=== PATIENT | male | born 1940 | race Caucasian/White ===

== ENCOUNTER → 2016-09-05 | Outpatient (CLI) | payer MEDICARE, BC ==
--- NOTE | 2016-09-05 09:10 | CT ---
EXAMINATION TYPE: CT brain wo con DATE OF EXAM: 09/05/2016 8:59 AM HISTORY: recent syncope CT DLP: 1135 mGycm. Automated Exposure Control for Dose Reduction was Utilized. TECHNIQUE: CT scan of the head is performed without contrast. COMPARISON: None. FINDINGS: There is no acute intracranial hemorrhage or midline shift identified. There is diffuse v entricular and sulcal prominence consistent with diffuse age-related cerebral atrophy. Atrophy most p rominent over frontal and temporal lobes. There is area of old infarct right frontal lobe near axial image 19. The globes are intact and the visualized sinuses are clear. There is vascular calcificat ion of distal internal carotid arteries present bilaterally. IMPRESSION: No acute intracranial hemorrhage or midline shift. 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
== END | disposition home or self-care (01) ==
LOC: RADCTMAIN 08:25
PROVIDERS: ATTEND Psychiatry & Neurology Neurology
DX: G31.9 Degenerative disease of nervous system, unspecified (principal); Z86.69 Personal history of other diseases of the nervous system and sense organs
CPT/HCPCS: 70450

== ENCOUNTER 2016-09-22 00:58 | Emergency (ER) | payer MEDICARE, BC ==
[2016-09-22 01:09] VITALS: RESP 16; TEMP 98
[2016-09-22] MEDS ORDERED: SODIUM CHLORIDE 0.9% 1,000 ML IV STA ×2 (01:24→02:57)
[2016-09-22] MEDS ORDERED: LIDOCAINE/EPINEPHR/TETRACAINE 5 ML BOTTLE TOPICAL ONE (01:24)
[2016-09-22] MEDS ORDERED: RX INFO: IV CONTRAST WAS GIVEN 1 EACH MISC MISCELLANE PRN ×2 (01:24→01:49)
--- NOTE | 2016-09-22 01:27 | ED ---
Fall HPI - General Chief Complaint: Fall Stated Complaint: Fall-Head Lac Time Seen by Provider: 09/22/16 01:12 Source: patient, RN notes reviewed Mode of arrival: EMS - History of Present Illness Initial Comments: 75-year-old male presents to the emergency Department chief complaint fall. Patient states he went to reach for the door and he fell. Patient states he hit his head and is having some left-sided abdominal pain. Patient states he has no hip pain and no arm pain. Patient does not believe he lost consciousness. Patient denies any neck pain. Patient states that he does take Plavix. Patient denies any chest pain or any lightheadedness or dizziness before the fall. Patient denies any significant pain besides some minor pain in his abdomen worse to touch. Patient denies any recent fever, chills, shortness of breath, chest pain, back pain, nausea vomiting, numbness or tingling, dysuria or hematuria, constipation or diarrhea, headaches or visual changes, or any other current symptoms. - Related Data Home Medications Medication Instructions Recorded Confirmed Acetaminophen [Tylenol] 650 mg PO Q4H 09/22/16 09/22/16 Aspirin EC [Ecotrin Low Dose] 81 mg PO HS 09/22/16 09/22/16 Atorvastatin Calcium [Lipitor] 40 mg PO HS 09/22/16 09/22/16 Bisacodyl 10 mg RECTAL PRN 09/22/16 Carbidopa-Levodopa 25-100 mg 1 each PO BID 09/22/16 09/22/16 [Sinemet 25-100] Clopidogrel Bisulfate [Plavix] 75 mg PO DAILY 09/22/16 09/22/16 Hydrochlorothiazide 12.5 mg PO BID 09/22/16 09/22/16 Ibuprofen 3 tab PO TID PRN 09/22/16 09/22/16 Insulin Detemir [Levemir] 12 unit SQ DAILY 09/22/16 09/22/16 Insulin Lispro [humaLOG Kwikpen] 8 unit SQ ACHS 09/22/16 09/22/16 Lisinopril 20 mg PO HS 09/22/16 09/22/16 Menthol [Biofreeze] 1 applicate TOPICAL BID 09/22/16 09/22/16 Metoprolol Tartrate 50 mg PO Q12HR 09/22/16 09/22/16 Pantoprazole [Protonix] 40 mg PO DAILY 09/22/16 09/22/16 Potassium Chloride [Klor-Con 8 meq PO DAILY 09/22/16 09/22/16 Sprinkle] metFORMIN HCL [Metformin HCl] 1,000 mg PO BID 09/22/16 09/22/16 Allergies Allergy/AdvReac Type Severity Reaction Status Date / Time No Known Allergies Allergy Verified 09/22/16 02:08 Review of Systems ROS Statement: Those systems with pertinent positive or pertinent negative responses have been documented in the HPI. ROS Other: All systems not noted in ROS Statement are negative. Past Medical History Past Alcohol Use History: None Reported Past Drug Use History: None Reported General Exam Limitations: no limitations General appearance: alert, in no apparent distress Head exam: Present: other (he does appear to have a 5 cm laceration to the forehead with associated hematoma) Eye exam: Present: normal appearance, PERRL, EOMI, other (Patient does appear to have ecchymosis surrounding the right eye). Absent: scleral icterus, conjunctival injection, periorbital swelling ENT exam: Present: normal exam, mucous membranes moist Neck exam: Present: normal inspection. Absent: tenderness, meningismus, lymphadenopathy Respiratory exam: Present: normal lung sounds bilaterally. Absent: respiratory distress, wheezes, rales, rhonchi, stridor Cardiovascular Exam: Present: regular rate, normal rhythm, normal heart sounds. Absent: systolic murmur, diastolic murmur, rubs, gallop, clicks GI/Abdominal exam: Present: soft, tenderness (Left lower quadrant), normal bowel sounds. Absent: distended, guarding, rebound, rigid Extremities exam: Present: normal inspection (Healing skin tears), full ROM, normal capillary refill. Absent: tenderness, pedal edema, joint swelling, calf tenderness Back exam: Present: normal inspection, full ROM, other (Area). Absent: tenderness, CVA tenderness (R), CVA tenderness (L) Neurological exam: Present: alert, oriented X3 Psychiatric exam: Present: normal affect, normal mood Skin exam: Present: warm, dry, intact, normal color. Absent: rash Course Vital Signs 09/22/16 09/22/16 01:05 02:20 Temperature 98 F Pulse Rate 79 85 Respiratory 16 16 Rate Blood Pressure 132/68 132/68 O2 Sat by Pulse 98 95 Oximetry Procedures - Procedures Initial comment: The skin was anesthetized with 1% lidocaine. The laceration was then cleansed with Betadine and irrigated with normal saline. The wound was inspected, and there was no evidence of injury to deep structures. No foreign body was noted in the wound. A total of 7 skin sutures were placed utilizing 6-0 nylon to a 5 cm forehead laceration. Medical Decision Making - Medical Decision Making 75-year-old male presents emergency per chief complaint of fall. At this time CAT scan is showing a small subarachnoid hemorrhage. We will transfer to [facility] for continued care. Patient CT abdomen and pelvis is showing suspicion for L1 compression fracture as well. At this time patient has no point tenderness over the area however they were also informed of this finding and we will transfer the patient for care of this to [facility] as well. - Lab Data Result diagrams: 09/22/16 01:45 09/22/16 01:45 Lab Results 09/22/16 09/22/16 09/22/16 Range/Units 01:45 01:45 01:45 WBC 16.8 H (3.8-10.6) k/uL RBC 3.58 L (4.30-5.90) m/uL Hgb 11.4 L (13.0-17.5) gm/dL Hct 35.2 L (39.0-53.0) % MCV 98.3 (80.0-100.0) fL MCH 31.9 (25.0-35.0) pg MCHC 32.4 (31.0-37.0) g/dL RDW 13.6 (11.5-15.5) % Plt Count 319 (150-450) k/uL Neutrophils % 82 % Lymphocytes % 12 % Monocytes % 4 % Eosinophils % 1 % Basophils % 0 % Neutrophils # 13.8 H (1.3-7.7) k/uL Lymphocytes # 2.0 (1.0-4.8) k/uL Monocytes # 0.6 (0-1.0) k/uL Eosinophils # 0.2 (0-0.7) k/uL Basophils # 0.1 (0-0.2) k/uL PT 9.8 (9.0-12.0) sec INR 1.0 (<1.1) APTT 20.3 L (22.0-30.0) sec Sodium 140 (137-145) mmol/L Potassium 5.3 H (3.5-5.1) mmol/L Chloride 107 (98-107) mmol/L Carbon Dioxide 21 L (22-30) mmol/L Anion Gap 12 mmol/L BUN 41 H (9-20) mg/dL Creatinine 1.40 H (0.66-1.25) mg/dL Est GFR (MDRD) Af Amer >60 (>60 ml/min/1.73 sqM) Est GFR (MDRD) Non-Af 50 (>60 ml/min/1.73 sqM) Glucose 146 H (74-99) mg/dL Calcium 9.1 (8.4-10.2) mg/dL Total Bilirubin 0.5 (0.2-1.3) mg/dL AST 20 (17-59) U/L ALT 23 (21-72) U/L Alkaline Phosphatase 97 (38-126) U/L Total Protein 6.2 L (6.3-8.2) g/dL Albumin 3.6 (3.5-5.0) g/dL - Radiology Data Radiology results: report reviewed, image reviewed Disposition Clinical Impression: Fall, Hematoma of frontal scalp, Forehead laceration, Subarachnoid hemorrhage following injury, Compression fracture of L1 lumbar vertebra, Hematoma of left flank, Hyperkalemia, Acute kidney injury Disposition: OTHER INSTITUTION NOT DEFINED Condition: Stable Referrals: Leobardo Cuba MD [Primary Care Provider] - 1-2 days - Out of Hospital Transfer - Req. Specs Out of Hospital Transfer - Requested Specifics: Other Emergency Center ([facility])
[2016-09-22 02:23] LABS: Basophils # (A) 0.1 k/uL (0-0.2); Basophils % (A) 0 %; CH 32.8; CHCM 33.5; Eosinophils # (A) 0.2 k/uL (0-0.7); Eosinophils % (A) 1 %; HCT 35.2 % (39.0-53.0); HDW 2.41; HGB 11.4 gm/dL (13.0-17.5); Luc % (Auto) 1; Lymphocytes % (A) 12 %; MCH 31.9 pg (25.0-35.0); MCHC 32.4 g/dL (31.0-37.0); MCV 98.3 fL (80.0-100.0); Mean Platelet Volume 7.3; Monocytes # (A) 0.6 k/uL (0-1.0); Monocytes % (A) 4 %; Neutrophils # (A) 13.8 k/uL (1.3-7.7); Neutrophils % (A) 82 %; RBC 3.58 m/uL (4.30-5.90); RDW 13.6 % (11.5-15.5); WBC 16.8 k/uL (3.8-10.6); WBC (Perox) 16.75
[2016-09-22 02:31] LABS: Anion Gap 12 mmol/L; Calcium 9.1 mg/dL (8.4-10.2); Carbon Dioxide 21 mmol/L (22-30); Chloride 107 mmol/L (98-107); Glucose 146 mg/dL (74-99); Non-African American GFR(MDRD) 50 (>60 ml/min/1.73 sqM); Sodium 140 mmol/L (137-145); Total Bilirubin 0.5 mg/dL (0.2-1.3); Total Protein 6.2 g/dL (6.3-8.2)
[2016-09-22 02:35] LABS: Prothrombin Time 9.8 sec (9.0-12.0)
[2016-09-22 02:39] LABS: ALT 23 U/L (21-72); AST 20 U/L (17-59); Alkaline Phosphatase 97 U/L (38-126); Blood Urea Nitrogen 41 mg/dL (9-20); Potassium 5.3 mmol/L (3.5-5.1)
--- NOTE | 2016-09-22 02:44 | CT ---
EXAM: CT Head Without Intravenous Contrast. CLINICAL HISTORY: Reason: Pain TECHNIQUE: Axial computed tomography images of the head/brain without intravenous contrast. CTDI is 60.3 mGy and DLP is 1126 mGy-cm. This CT exam was performed using one or more of the following dose reduction techniques: automated exposure control, adjustment of the mA and/or kV according to patient size, and/or use of iterative reconstruction technique. COMPARISON: 09/05/16 FINDINGS: Brain: There is a small amount of acute subarachnoid hemorrhage within sulci of the posterior-superior left frontal lobe (series 3, images 32- 37). No mass effect. Small chronic right frontal lobe infarct again noted as well as right basal ganglia lacunar infarct. Generally stable involutional and microvascular ischemic changes Bones: Forehead contusion. No acute fracture. Bilateral calvarial tiki hole defects again noted Sinuses: Interval development of sphenoid sinusitis. Mastoid air cells: Unremarkable as visualized. No mastoid effusion. IMPRESSION: Small amount of acute subarachnoid hemorrhage within sulci of the left frontal lobe. No mass effect. EXAM: CT Cervical Spine Without Intravenous Contrast. CLINICAL HISTORY: Reason: Pain TECHNIQUE: Axial computed tomography images of the cervical spine without intravenous contrast. CTDI is 20 mGy and DLP is 480 mGy-cm. This CT exam was performed using one or more of the following dose reduction techniques: automated exposure control, adjustment of the mA and/or kV according to patient size, and/or use of iterative reconstruction technique. COMPARISON: No relevant prior studies available. FINDINGS: Vertebrae: No acute fracture. Discs/spinal canal/neural foramina: Multilevel spondylosis including disc space and facet and uncovertebral joint degeneration. Findings are most pronounced at C5-6 and C6-7. Soft tissues: Right greater than left carotid atherosclerosis. Pacer wires. Lung apices: Unremarkable as visualized. IMPRESSION: No fracture Critical Value Communications 09/22/16 03:03 Call Doctor Regarding Intracranial Hemorrhage, called Dr. Reyes on 09/22 03:02 (-04:00)
[2016-09-22 02:51] LABS: Partial Thromboplastin Time 20.3 sec (22.0-30.0)
--- NOTE | 2016-09-22 02:55 | CT ---
EXAM: CT Chest With Intravenous Contrast. CLINICAL HISTORY: Reason: Pain TECHNIQUE: Axial computed tomography images of the chest with intravenous contrast. CTDI is 18.8 mGy and DLP is 1387 mGy-cm. This CT exam was performed using one or more of the following dose reduction techniques: automated exposure control, adjustment of the mA and/or kV according to patient size, and/or use of iterative reconstruction technique. COMPARISON: No relevant prior studies available. FINDINGS: Lungs: Right greater than left base scarring and atelectasis. Old granulomatous disease. Pleural spaces: No significant effusion. No pneumothorax. Heart: Aortic valve replacement. Pacer device. Vasculature: Aortic atherosclerosis. No aneurysm. Mediastinum: Small sliding-type hiatal hernia. Bones: Sternotomy. Left clavicular ORIF. Multiple chronic-appearing rib deformities. No acute fracture. IMPRESSION: No acute thoracic injury. EXAM: CT Abdomen and Pelvis With Intravenous Contrast. CLINICAL HISTORY: Reason: Pain TECHNIQUE: Axial computed tomography images of the abdomen and pelvis with intravenous contrast. CTDI is 22.5 mGy and DLP is 721 mGy-cm. This CT exam was performed using one or more of the following dose reduction techniques: automated exposure control, adjustment of the mA and/or kV according to patient size, and/or use of iterative reconstruction technique. COMPARISON: No relevant prior studies available. FINDINGS: Status post cholecystectomy. No biliary dilation. The liver, pancreas, spleen, and adrenal glands are within normal limits. Mild renal scarring. No obstruction. No bowel obstruction or perforation. No hemoperitoneum. Normal appendix. Aortoiliac atherosclerosis without aneurysm. Subcutaneous contusion to the left flank. No active extravasation. Potentially acute or subacute L1 compression fracture. Clinical correlation is recommended. 50% loss of height. No retropulsion. L4 and L5 deformities appear chronic. Right sided spondylolysis of the lumbarized S1 level. IMPRESSION: Potentially acute or subacute L1 compression fracture. Clinical correlation is recommended. No abdominal/pelvic visceral injury. Subcutaneous left flank contusion.
[2016-09-22 03:44] VITALS: BP 160/69; PULSE 75
[2016-09-22 04:14] LABS: Appearance,Urine Clear (Clear); Bilirubin,Urine Negative (Negative); Glucose,Urine (UA) Negative (Negative); Ketones,Urine Trace (Negative); Leukocyte Esterase,Urine Negative (Negative); Nitrite,Urine Negative (Negative); PH, Urine 5.5 (5.0-8.0); Protein,Urine Negative (Negative); Specific Gravity,Urine 1.034 (1.001-1.035); UA Billing (MACRO vs. MICRO) CHEM; Urobilinogen,Urine <2.0 mg/dL (<2.0)
== END 2016-09-22 03:47 | disposition short-term general hospital (02) ==
LOC: EC 00:58
DX: S06.6X9A Traumatic subarachnoid hemorrhage with loss of consciousness of unspecified duration, initial encounter (principal); S01.81XA Laceration without foreign body of other part of head, initial encounter; S32.019A Unspecified fracture of first lumbar vertebra, initial encounter for closed fracture; S30.1XXA Contusion of abdominal wall, initial encounter; S37.002A Unspecified injury of left kidney, initial encounter; E87.5 Hyperkalemia; Z79.4 Long term (current) use of insulin; Z79.899 Other long term (current) drug therapy; Z79.02 Long term (current) use of antithrombotics/antiplatelets; Z79.82 Long term (current) use of aspirin; Z79.891 Long term (current) use of opiate analgesic; W18.30XA Fall on same level, unspecified, initial encounter
CPT/HCPCS: 99285; 12013; 96360; 96361; 36415; 80053; 85025; 85610; 85730; 81003; 87086; 72125; 70450; 71260; 74177; Q9967

== ENCOUNTER 2016-10-30 21:36 | Emergency (ER) | payer MEDICARE, BC ==
[2016-10-30 21:44] VITALS: BP 133/60; PULSE 64; RESP 18; TEMP 99.3
[2016-10-30] MEDS ORDERED: SODIUM CHLORIDE 0.9% 1,000 ML IV STA (21:49)
[2016-10-30 21:51] LABS: Glucose,Whole Blood 264 mg/dL (75-99)
--- NOTE | 2016-10-30 21:52 | ED ---
General Adult HPI - General Chief complaint: Fall Stated complaint: Fall Time Seen by Provider: 10/30/16 21:38 Source: EMS, RN notes reviewed, old records reviewed Mode of arrival: EMS Limitations: no limitations, altered mental status - History of Present Illness Initial comments: This is a 75-year-old male the ER for evaluation. they for evaluation of weakness, fall. Patient to follow with head injury on Plavix and aspirin. The patient fell from standing not witnessed headaches in a care facility. Patient was found on ground with bleeding from site and head, forehead. Patient himself denies any complaints denies any other injury patient is poor historian - Related Data Home Medications Medication Instructions Recorded Confirmed Acetaminophen [Tylenol] 650 mg PO Q4H PRN 09/22/16 10/30/16 Aspirin EC [Ecotrin Low Dose] 81 mg PO HS 09/22/16 10/30/16 Atorvastatin Calcium [Lipitor] 40 mg PO HS 09/22/16 10/30/16 Carbidopa-Levodopa 25-100 mg 1 tab PO BID 09/22/16 10/30/16 [Sinemet 25-100] Clopidogrel Bisulfate [Plavix] 75 mg PO DAILY 09/22/16 10/30/16 Insulin Detemir [Levemir] 20 unit SQ HS 09/22/16 10/30/16 Potassium Chloride [Klor-Con 8 meq PO DAILY 09/22/16 10/30/16 Sprinkle] Cholecalciferol (Vitamin D3) 2,000 unit PO DAILY 10/30/16 10/30/16 [Vitamin D3] Cyanocobalamin [Vitamin B-12] 500 mcg PO DAILY 10/30/16 10/30/16 Docusate [Colace] 100 mg PO BID 10/30/16 10/30/16 HYDROcodone/APAP 5-325MG [Mexia 1 tab PO Q4HR PRN 10/30/16 10/30/16 5-325] INSULIN LISPRO (humaLOG) [HumaLOG] 4 units SQ AC-TID 10/30/16 10/30/16 Lactobacillus Acidophilus 1 tab PO BID 10/30/16 10/30/16 [Acidophilus] Metoprolol Tartrate [Lopressor] 12.5 mg PO BID 10/30/16 10/30/16 Omeprazole [PriLOSEC] 20 mg PO DAILY 10/30/16 10/30/16 Allergies Allergy/AdvReac Type Severity Reaction Status Date / Time No Known Allergies Allergy Verified 10/30/16 21:37 Review of Systems ROS Statement: Those systems with pertinent positive or pertinent negative responses have been documented in the HPI. ROS Other: All systems not noted in ROS Statement are negative. Past Medical History Past Medical History: CVA/TIA, Diabetes Mellitus History of Any Multi-Drug Resistant Organisms: None Reported Past Surgical History: Cholecystectomy, Coronary Bypass/CABG Past Psychological History: No Psychological Hx Reported Past Alcohol Use History: None Reported Past Drug Use History: None Reported General Exam Limitations: no limitations General appearance: alert, in no apparent distress Head exam: Present: normocephalic, normal inspection. Absent: atraumatic (3 cm laceration forehead) Eye exam: Present: normal appearance, PERRL, EOMI. Absent: scleral icterus, conjunctival injection, periorbital swelling ENT exam: Present: normal exam, mucous membranes moist Neck exam: Present: normal inspection. Absent: tenderness, meningismus, lymphadenopathy Respiratory exam: Present: normal lung sounds bilaterally. Absent: respiratory distress, wheezes, rales, rhonchi, stridor Cardiovascular Exam: Present: regular rate, normal rhythm, normal heart sounds. Absent: systolic murmur, diastolic murmur, rubs, gallop, clicks GI/Abdominal exam: Present: soft, normal bowel sounds. Absent: distended, tenderness, guarding, rebound, rigid Extremities exam: Present: normal inspection, full ROM, normal capillary refill. Absent: tenderness, pedal edema, joint swelling, calf tenderness Back exam: Present: normal inspection Neurological exam: Present: alert, oriented X3, CN II-XII intact Psychiatric exam: Present: normal affect, normal mood Skin exam: Present: warm, dry, intact, normal color. Absent: rash Course Vital Signs 10/30/16 21:37 Temperature 99.3 F Pulse Rate 64 Respiratory 18 Rate Blood Pressure 133/60 O2 Sat by Pulse 96 Oximetry - Reevaluation(s) Reevaluation #1: Patient does have positive subacute hemorrhage from fall. Patient will be transferred to neurological surgical evaluation of [facility]. Family is updated and aware, questions are answered EKG Findings - EKG Comments: EKG Findings:: EKG shows sinus rhythm paced rhythm rate of 70, W[place] 2 26, QRS 148 , QTC 483 Procedures - Laceration Laceration #1 Consent Obtained: verbal consent Time Out Performed: Yes Indication: laceration Site: scalp Size (cm): 3 Description: linear Depth: arterial injury Pre-repair: wound explored Type of Sutures: nylon Size of Sutures: 4-0 Technique: simple, interrupted Medical Decision Making - Medical Decision Making 75 mallei F reevaluation status post fall, patient is on Plavix management, patient is a positive intracranial hemorrhage, [facility], laceration is repaired and patient can be discharged chest or - Lab Data Result diagrams: 10/30/16 22:00 10/30/16 22:00 Lab Results 10/30/16 10/30/16 10/30/16 Range/Units 21:40 22:00 22:00 WBC 13.6 H (3.8-10.6) k/uL RBC 3.45 L (4.30-5.90) m/uL Hgb 11.3 L (13.0-17.5) gm/dL Hct 33.9 L (39.0-53.0) % MCV 98.4 (80.0-100.0) fL MCH 32.7 (25.0-35.0) pg MCHC 33.2 (31.0-37.0) g/dL RDW 13.1 (11.5-15.5) % Plt Count 329 (150-450) k/uL Neutrophils % 82 % Lymphocytes % 11 % Monocytes % 5 % Eosinophils % 1 % Basophils % 0 % Neutrophils # 11.2 H (1.3-7.7) k/uL Lymphocytes # 1.4 (1.0-4.8) k/uL Monocytes # 0.7 (0-1.0) k/uL Eosinophils # 0.1 (0-0.7) k/uL Basophils # 0.0 (0-0.2) k/uL PT (9.0-12.0) sec INR (<1.1) APTT (22.0-30.0) sec Sodium (137-145) mmol/L Potassium (3.5-5.1) mmol/L Chloride (98-107) mmol/L Carbon Dioxide (22-30) mmol/L Anion Gap mmol/L BUN (9-20) mg/dL Creatinine (0.66-1.25) mg/dL Est GFR (MDRD) Af Amer (>60 ml/min/1.73 sqM) Est GFR (MDRD) Non-Af (>60 ml/min/1.73 sqM) Glucose (74-99) mg/dL POC Glucose (mg/dL) 264 H (75-99) mg/dL POC Glu Back Panel Padder ID Jai Huff Calcium (8.4-10.2) mg/dL Phosphorus (2.5-4.5) mg/dL Magnesium (1.6-2.3) mg/dL Total Bilirubin (0.2-1.3) mg/dL AST (17-59) U/L ALT (21-72) U/L Alkaline Phosphatase (38-126) U/L Total Creatine Kinase 54 L (55-170) U/L CK-MB (CK-2) 0.7 (0.0-2.4) ng/mL CK-MB (CK-2) Rel Index 1.3 Troponin I <0.012 (0.000-0.034) ng/mL Total Protein (6.3-8.2) g/dL Albumin (3.5-5.0) g/dL 10/30/16 10/30/16 10/30/16 Range/Units 22:00 22:00 22:30 WBC (3.8-10.6) k/uL RBC (4.30-5.90) m/uL Hgb (13.0-17.5) gm/dL Hct (39.0-53.0) % MCV (80.0-100.0) fL MCH (25.0-35.0) pg MCHC (31.0-37.0) g/dL RDW (11.5-15.5) % Plt Count (150-450) k/uL Neutrophils % % Lymphocytes % % Monocytes % % Eosinophils % % Basophils % % Neutrophils # (1.3-7.7) k/uL Lymphocytes # (1.0-4.8) k/uL Monocytes # (0-1.0) k/uL Eosinophils # (0-0.7) k/uL Basophils # (0-0.2) k/uL PT 10.9 (9.0-12.0) sec INR 1.1 (<1.1) APTT 20.7 L (22.0-30.0) sec Sodium 139 (137-145) mmol/L Potassium 4.9 (3.5-5.1) mmol/L Chloride 107 (98-107) mmol/L Carbon Dioxide 23 (22-30) mmol/L Anion Gap 9 mmol/L BUN 26 H (9-20) mg/dL Creatinine 1.40 H (0.66-1.25) mg/dL Est GFR (MDRD) Af Amer >60 (>60 ml/min/1.73 sqM) Est GFR (MDRD) Non-Af 50 (>60 ml/min/1.73 sqM) Glucose 275 H (74-99) mg/dL POC Glucose (mg/dL) 267 H (75-99) mg/dL POC Glu Back Panel Padder ID Napavine, Christel Calcium 8.5 (8.4-10.2) mg/dL Phosphorus 3.2 (2.5-4.5) mg/dL Magnesium 1.8 (1.6-2.3) mg/dL Total Bilirubin 0.4 (0.2-1.3) mg/dL AST 24 (17-59) U/L ALT 44 (21-72) U/L Alkaline Phosphatase 184 H (38-126) U/L Total Creatine Kinase (55-170) U/L CK-MB (CK-2) (0.0-2.4) ng/mL CK-MB (CK-2) Rel Index Troponin I (0.000-0.034) ng/mL Total Protein 6.0 L (6.3-8.2) g/dL Albumin 3.4 L (3.5-5.0) g/dL - Radiology Data Radiology results: report reviewed (CT bases nonpositive for new intracranial hemorrhage, chest x-ray and pelvis x-ray negative for trauma), image reviewed Critical Care Time Critical Care Time: Yes Total Critical Care Time: 31 Disposition Clinical Impression: Fall, Intracranial hemorrhage, Forehead laceration Disposition: OTHER INSTITUTION NOT DEFINED Condition: Critical Referrals: Leobardo Cuba MD [Primary Care Provider] - 1-2 days - Out of Hospital Transfer - Req. Specs Out of Hospital Transfer - Requested Specifics: Other Emergency Center ([facility]
[2016-10-30 22:14] LABS: Basophils % (A) 0 %; CHCM 32.6; Eosinophils # (A) 0.1 k/uL (0-0.7); Eosinophils % (A) 1 %; HCT 33.9 % (39.0-53.0); HDW 2.53; HGB 11.3 gm/dL (13.0-17.5); Luc # (Auto) 0.18; Luc % (Auto) 1; Lymphocytes # (A) 1.4 k/uL (1.0-4.8); Lymphocytes % (A) 11 %; MCH 32.7 pg (25.0-35.0); MCHC 33.2 g/dL (31.0-37.0); MCV 98.4 fL (80.0-100.0); Mean Platelet Volume 7.6; Monocytes # (A) 0.7 k/uL (0-1.0); Monocytes % (A) 5 %; Neutrophils # (A) 11.2 k/uL (1.3-7.7); Neutrophils % (A) 82 %; RBC 3.45 m/uL (4.30-5.90); RDW 13.1 % (11.5-15.5); WBC 13.6 k/uL (3.8-10.6); WBC (Perox) 14.58
[2016-10-30 22:20] LABS: ALT 44 U/L (21-72); AST 24 U/L (17-59); Alkaline Phosphatase 184 U/L (38-126); Anion Gap 9 mmol/L; Blood Urea Nitrogen 26 mg/dL (9-20); Calcium 8.5 mg/dL (8.4-10.2); Carbon Dioxide 23 mmol/L (22-30); Chloride 107 mmol/L (98-107); Glucose 275 mg/dL (74-99); Magnesium 1.8 mg/dL (1.6-2.3); Non-African American GFR(MDRD) 50 (>60 ml/min/1.73 sqM); Phosphorous 3.2 mg/dL (2.5-4.5); Potassium 4.9 mmol/L (3.5-5.1); Sodium 139 mmol/L (137-145); Total Bilirubin 0.4 mg/dL (0.2-1.3)
[2016-10-30 22:32] LABS: Glucose,Whole Blood 267 mg/dL (75-99)
[2016-10-30 22:38] LABS: INR 1.1 (<1.1); Prothrombin Time 10.9 sec (9.0-12.0)
[2016-10-30 22:42] LABS: Partial Thromboplastin Time 20.7 sec (22.0-30.0)
[2016-10-30 22:45] LABS: Creatine Kinase 54 U/L (55-170)
[2016-10-30 22:58] LABS: Creatine Kinase MB 0.7 ng/mL (0.0-2.4); Troponin I <0.012 ng/mL (0.000-0.034)
--- NOTE | 2016-10-31 02:58 | XR ---
EXAM: XR Pelvis, 1 or 2 Views CLINICAL HISTORY: Reason: Pain status post fall TECHNIQUE: Frontal view of the pelvis. COMPARISON: CT abdomen/pelvis on 09/22/2016 FINDINGS: Bones/joints: No acute fracture or dislocation identified. Mild degenerative changes of the hips and visualized lower lumbar spine. Soft tissues: Vascular calcifications. Other: Density projected over the left ilium may be within bowel. IMPRESSION: No acute abnormality identified.
--- NOTE | 2016-10-31 02:58 | XR ---
ADDENDUM - Added by oTr Soriano M.D. on 10/30/2016 11:39 PM (-07:00) EXAM: XR Chest, 1 View CLINICAL HISTORY: Reason: Multiple falls today. Hx of CVA. TECHNIQUE: Frontal view of the chest. COMPARISON: CT chest/abdomen/pelvis on 09/22/2016 FINDINGS: Lungs/pleura: Low lung volumes with bibasilar opacities which may represent atelectasis with small right pleural effusion. No definite pneumothorax. Calcified granuloma at the left lung apex. Heart/mediastinum: Median sternotomy changes. Left-sided pacemaker in place. No cardiomegaly. Soft tissues: Unremarkable. Bones: Acute appearing displaced fracture of the distal left clavicle at the lateral edge of the plate and screw fixation. Plate and screw fixation of the left mid clavicle. Degenerative changes of the acromioclavicular joints and glenohumeral joints. Upper abdomen: Normal. IMPRESSION: 1. Acute appearing displaced fracture of the distal left clavicle, new since prior exam on 09/22/2016. 2. Low lung volumes with bibasilar atelectasis and small right pleural effusion. Critical Value Communications 10/30/16 23:45 Call Doctor Regarding Trauma, called Dr. Cade on 10/30 23:44 (-04:00)
--- NOTE | 2016-10-31 02:58 | CT ---
ADDENDUM - Added by Tor Soriano M.D. on 10/30/2016 11:38 PM (-07:00) EXAM: CT Head Without Intravenous Contrast CLINICAL HISTORY: Reason: Pain status post fall with nausea TECHNIQUE: Axial computed tomography images of the head/brain without intravenous contrast. CTDI is 57.40 mGy and DLP is 1184.90 mGy-cm. This CT exam was performed using one or more of the following dose reduction techniques: automated exposure control, adjustment of the mA and/or kV according to patient size, and/or use of iterative reconstruction technique. COMPARISON: CT head on 09/22/2016 FINDINGS: Brain: New trace subarachnoid hemorrhage along the inferior right frontal lobe. Interval resolution of the trace subarachnoid hemorrhage along the left posterior frontal lobe seen on 09/22/2016. No acute infarct or intraparenchymal hemorrhage. No mass effect or midline shift. Stable scattered areas of hypoattenuation in the supratentorial white matter likely represent chronic small vessel ischemic changes. 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 Stable remote lacunar infarct in the region of the right basal ganglia. Ventricles and sulci: Stable prominence of the ventricles and sulci is likely secondary to cerebral volume loss. Skull: No skull fracture. Worsened deformity of the nasal bones compared to prior exam, suggestive of acute fracture. Bilateral tiki holes noted. Subcutaneous tissues: Decreased soft tissue swelling over the right maxilla. Frontal scalp hematoma with laceration. Sinuses: New minimal fluid in the maxillary sinuses with minimal mucosal thickening. Increased mucosal thickening/fluid in the ethmoid air cells. Decreased mucosal thickening in the right sphenoid sinus with persistent polyp versus mucous retention cyst. Orbits: Grossly unremarkable. Other: Atherosclerotic changes of the intracranial vasculature. IMPRESSION: 1. Trace acute subarachnoid hemorrhage along the inferior right frontal lobe, new since prior exam on 09/22/2016. Interval resolution of the trace subarachnoid hemorrhage previously seen along the posterior left frontal lobe. 2. No acute infarct identified. 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 3. Worsened deformity of the nasal bones may represent acute fracture. No skull fracture. 4. New minimal fluid in the maxillary sinuses and increased fluid/mucosal thickening in the ethmoid air cells. Decreased opacification of the right sphenoid sinus. EXAM: CT Cervical Spine Without Intravenous Contrast CLINICAL HISTORY: Reason: Pain status post fall with nausea TECHNIQUE: Axial computed tomography images of the cervical spine without intravenous contrast. CTDI is 23.60 mGy and DLP is 608.50 mGy-cm. This CT exam was performed using one or more of the following dose reduction techniques: automated exposure control, adjustment of the mA and/or kV according to patient size, and/or use of iterative reconstruction technique. COMPARISON: CT C-spine on 09/22/2016 FINDINGS: Bones: Normal alignment. No acute fracture or bony lesion. Disc spaces: Stable mild degenerative anterolisthesis of C7 on T1. Stable multilevel degenerative changes of the cervical spine, most prominent at C5-6 and C6-7. Soft tissues: Normal. Other: Calcified granuloma at the left lung apex. Small scattered lymph nodes are not pathologically enlarged and likely reactive. IMPRESSION: No acute traumatic abnormality. Critical Value Communications 10/30/16 23:45 Call Doctor Regarding Intracranial Hemorrhage, called Dr. Cade on 10/30 23:44 (-04:00)
== END 2016-10-31 00:35 | disposition short-term general hospital (02) ==
LOC: EC 21:36
DX: S06.9X9A Unspecified intracranial injury with loss of consciousness of unspecified duration, initial encounter (principal); S01.01XA Laceration without foreign body of scalp, initial encounter; E11.9 Type 2 diabetes mellitus without complications; Z79.02 Long term (current) use of antithrombotics/antiplatelets; Z79.4 Long term (current) use of insulin; Z79.82 Long term (current) use of aspirin; Z79.899 Other long term (current) drug therapy; Z86.73 Personal history of transient ischemic attack (TIA), and cerebral infarction without residual deficits; W18.30XA Fall on same level, unspecified, initial encounter; Y92.89 Other specified places as the place of occurrence of the external cause
CPT/HCPCS: 12002; 36415; 70450; 71010; 72125; 72170; 80053; 82550; 82553; 83735; 84100; 84484; 85025; 85610; 85730; 93005; 96360; 96361; 99291